=== PATIENT | male | born 2000 | race African-American/Black ===

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

== ENCOUNTER 2020-05-31 17:03 | Emergency (ER) | payer BC, OTHER ==
[2020-05-31 17:10] VITALS: BP 151/74; PULSE 90; TEMP 97.9; BMI 38.7
== END 2020-05-31 18:37 | disposition home or self-care (01) ==
LOC: JERFT 17:03
DX: M53.3 Sacrococcygeal disorders, not elsewhere classified (principal)
CPT/HCPCS: 72220-TC-FY; 99283-25